=== PATIENT | female | born 1995 | race Caucasian/White ===

== ENCOUNTER 2025-03-29 15:33 | Emergency (ER) | payer OTHER, SELFPAY ==
--- NOTE | ~2025-03-29 | US_ITS ---
CLINICAL HISTORY: Left Inguinal Tenderness, LT PELVIC PAIN US pelvis transvaginal Comparison: None provided Findings: Transvaginal scanning performed. Anteverted uterus is 7 cm length. Normal myometrium. Endometrium 2 mm thickness. Right ovary 1.7 x 0.9 x 0.8 cm. Left ovary not visualized No free fluid. IMPRESSION: 1. Unremarkable pelvic ultrasound 2. Left ovary not visualized This document has been electronically signed by: Elpidio Stover MD, PHD on 03/29/2025 23:50:31
--- NOTE | ~2025-03-29 | US_ITS ---
CLINICAL HISTORY: Pain; Recent Travel Venous duplex ultrasound left lower extremity Comparison: None provided Findings: The visualized deep veins are fully compressible with normal Doppler color flow and spectral tracings. No popliteal cyst. IMPRESSION: 1. Negative for left lower extremity deep vein thrombosis. This document has been electronically signed by: Elpidio Stover MD, PHD on 03/29/2025 23:47:30
--- NOTE | ~2025-03-29 | CT_ITS ---
CLINICAL HISTORY: LLQ Tenderness; L Flank Pain CT abdomen and pelvis with contrast Comparison: CT - CT ABDOMEN PELVIS W IV CON - 03/29/25 23:59 EDT Findings: Small hiatal hernia. Unremarkable gallbladder and solid organs. No urolithiasis. No bowel obstruction, pneumoperitoneum, or pneumatosis. The appendix is surgically absent. The bones are intact. IMPRESSION: No acute findings. This document has been electronically signed by: Elpidio Stover MD, PHD on 03/30/2025 01:48:19
[2025-03-29 15:55] VITALS: BP 140/70; PULSE 75; RESP 20; TEMP 37; O2SAT 100; BMI 30.1
--- NOTE | 2025-03-29 15:55 | ED_ITS ---
HPI - General Adult General Chief complaint: Abdominal Pain Stated complaint: abd pain radiating to back and leg Time Seen by Provider: 03/29/25 20:03 Source: patient Mode of arrival: ambulatory Limitations: no limitations History of Present Illness ED Provider: Kevon CARTER HPI narrative: Patient is a 30-year-old female presenting to the ED reporting approximately 1 week ago while in [facility] she was experiencing GI symptoms with the abdominal cramping and borborygmi, as well as nonbloody diarrhea. Patient reports symptoms resolved and she returned home 2 days ago. Patient reports today she developed bilateral lower quadrant abdominal pain worse on the left with radiation into the bilateral flanks and left leg. The patient denies associated chest pain, shortness of breath, pleurisy, fever/chills, nausea, vomiting, diarrhea, dysuria, hematuria, recent sick contacts, or recent trauma. The patient does report she started her menses today as expected, denies history of painful menstruation. Patient reports history of 1 previous , and also an appendectomy 15 years ago. Denies other surgical abdominal history. Related Data Allergies Allergy/AdvReac Type Severity Reaction Status Date / Time acetaminophen (From Vicodin) AdvReac Gastrointestinal Verified 03/29/25 15:55 Upset hydrocodone (From Vicodin) AdvReac Gastrointestinal Verified 03/29/25 15:55 Upset Review of Systems 2 Review of Systems: Yes all other systems are reviewed and are negative PMFSH Social History Social History Smoked in Last 30 Days: No Use of substances other than those prescribed or required for medical reasons: No Advance Directives: No Advance Directives Information Provided: No Patient : No Physical Exam ED Vital Signs: Vital Signs - 24 hr 03/29/25 15:55 03/29/25 18:40 03/29/25 19:52 Temperature 98.6 F 98.6 F 98.4 F Pulse Rate 75 104 H 72 Respiratory Rate 20 20 16 Blood Pressure 140/70 H 158/78 H 124/81 Pulse Oximetry 100 100 100 Oxygen Delivery Method Room Air Room Air Room Air BMI result Body Mass Index 30.1 CONSTITUTIONAL: The patient appears non-toxic, well nourished and in no acute distress. Vital signs as documented. HEAD: Atraumatic, normocephalic. EYES: EOMs grossly intact, pupils equal, conjunctiva clear, no exudate. ENT: Nares patent, no discharge. Airway patent, no audible stridor, visible mucosa is pink and moist without noted lesions. NECK: Trachea is midline, no obvious masses or gross abnormalities. CHEST: Symmetric movement, normal appearance. LUNGS: LS present and CTAB, no w/r/r. Non-labored work of breathing. CARDIAC: Regular Rhythm, S1/S2 appreciated, no murmurs, rubs or gallops. ABDOMEN: Abdomen soft x4 quadrants, positive tenderness of the left lower quadrant, negative rebound, no palpable masses or organomegaly. : Deferred. EXTREMITIES: Normal tone, moves all extremities spontaneously without reported pain. No obvious acute injury or deformity noted. NEURO: Alert and oriented x3, CN II-XII appear grossly intact. Cerebellar Functioning grossly intact. No obvious sensory or motor deficits. Speech clear and appropriate. PSYCH: normal affect, appropriate eye contact, fluid speech, with appropriate response to questioning. No reported suicidality or homicidality. SKIN: Warm, dry, color appropriate, normal turgor. No rashes noted. Course Course Course Narrative: This is a rapid medical exam performed by Jammie Cuba NP: Additional HPI, ROS, PE not included below will be deferred to primary provider. Patient is a 30y/o F pmhx of appendectomy, presenting with complaint of LLQ abd pain radiating to back and left leg. 5 days ago had diarrhea. Then 2 days ago flew home from [facility], and pain began last night. Referred from urgent care. Plan: Labs, UA Medications Administered Discontinued Medications Generic Name Dose Route Start Last Admin Trade Name Lele PRN Reason Stop Dose Admin Acetaminophen 975 mg 03/29/25 23:25 03/29/25 23:38 Acetaminophen 325 Mg Tablet PO 03/29/25 23:26 975 mg ONCE ONE Administration Iohexol 85 ml 03/30/25 00:12 03/30/25 00:12 Iohexol 350 Mg/Ml 100 Ml Infus..Btl IV 03/30/25 00:13 85 ml ONCE ONE Administration Ketorolac Tromethamine 30 mg 03/29/25 18:41 03/29/25 18:44 Ketorolac Tromethamine 30 Mg/Ml Vial IM 03/29/25 18:42 30 mg ONCE ONE Administration Medical Decision Making Medical Decision Making MDM Narrative: 8:50 PM 03/29/2025 (Danilo CARTER): The patient is a 30-year-old female presenting to the ED for evaluation of bilateral lower quadrant abdominal pain radiating to the flanks and left leg which began today, after she experienced 3 days of abdominal upset with diarrhea while traveling in [facility]. On exam patient is well-appearing, nontoxic. Abdominal exam reveals left lower quadrant abdominal tenderness, negative rebound. Patient received Toradol during triage process, reports pain improved from 8 to 3. The patient's laboratory evaluation shows no leukocytosis, anemia, electrolyte abnormality, or POLLO. The patient's LFTs are unremarkable, beta hCG is negative. Urinalysis shows moderate leukocyte esterase but without bacteria or nitrites. Given lack of symptoms UTI is unlikely. Due to abdominal tenderness the patient will be sent for ultrasound of the pelvis, additionally we will obtain ultrasound of left lower extremity due to radiation of pain in the left leg with recent travel. If ultrasound evaluation is nondiagnostic we will consider CT imaging. 12:08 AM 03/30/2025 (Danilo CARTER): The patient's ultrasound shows no evidence of left lower extremity DVT. Pelvic ultrasound shows no acute abnormalities, however the left ovary is not visualized. Patient will be sent for CT of the abdomen and pelvis. 1:58 AM 03/30/2025 (Danilo CARTER): Patient's CT shows no acute findings. The exact cause of the patient's discomfort is not entirely clear, may be related to menstrual cramping. We will treat with a additional Toradol as it has been greater than 8 hours since previous treatment. At this time patient has been advised to follow up with PCP and OBGYN. Patient is comfortable with plan for discharge home and outpatient follow up. Patient has been provided strict return instructions and appears reliable. Admission/Observation Consideration of admission/observation: Escalation of care including admission/observation considered Lab Data MDM Lab Attestation statement: I reviewed the patient's lab results. 03/29/25 16:19 03/29/25 16:19 Labs: Lab Results 03/29/25 03/29/25 Range/Units 16:19 16:25 WBC 7.1 (4.8-10.8) X10*3/uL RBC 4.49 (4.20-5.50) X10*6/uL Hgb 12.9 (12.0-16.0) g/dl Hct 39.9 (37.0-47.0) % MCV 88.9 (80.0-98.0) fL MCH 28.7 (27.0-33.0) pg MCHC 32.3 (31.0-35.0) g/dl RDW 12.2 (11.0-16.0) % Plt Count 291 (160-400) X10*3/uL MPV 11.3 (9.4-12.3) fL Immature Gran % (Auto) 0.3 (0.0-0.4) % Neut % (Auto) 66.1 (45-73) % Lymph % (Auto) 25.5 (20-40) % Independence % (Auto) 5.3 (2-11) % Eos % (Auto) 2.0 (0-4) % Baso % (Auto) 0.8 (0-2) % Lymph # (Auto) 1.8 (1.2-4.9) X10*3/uL Independence # (Auto) 0.4 (0.1-1.2) X10*3/uL Eos # (Auto) 0.1 (0.0-0.4) X10*3/uL Baso # (Auto) 0.1 (0.0-0.2) X10*3/uL Abs Immat Gran (auto) 0.02 (0.00-0.03) X10*3/uL Absolute Neuts (auto) 4.7 (2.0-8.3) x10*3/uL Absolute Nucleated RBC 0.000 (0.0-0.012) X10*3/uL Nucleated RBC % (auto) 0.0 (0.0-0.2) /100WBC Sodium 140 (135-145) mmol/L Potassium 3.8 (3.3-5.1) mmol/L Chloride 109 H (96-108) mmol/L Carbon Dioxide 24 (22-29) mmol/L Anion Gap 11 L (12-20) BUN 11 (9-16) mg/dL Creatinine 0.81 (0.5-1.4) mg/dL Estim Creat Clear Calc 109.2 Estimated GFR > 60 Random Glucose 97 (60-115) mg/dL Calcium 9.0 (8.4-10.2) mg/dL Magnesium 2.0 (1.6-2.6) mg/dL Total Bilirubin 0.5 (0.0-1.0) mg/dL AST 23 (5-31) U/L ALT 20 (0-31) U/L Alkaline Phosphatase 64 (39-117) U/L Total Protein 7.2 (6.5-8.0) g/dL Albumin 4.3 (3.5-5.0) g/dL Beta HCG, Quant < 2 mIU/mL Urine Color Yellow Urine Appearance Clear Urine pH 7.5 (5.0-9.0) Ur Specific Seymour 1.015 (1.005-1.025) Urine Protein Negative (Neg-Trace) mg/dL Urine Glucose (UA) Negative (Negative) mg/dL Urine Ketones Negative (Negative) mg/dL Urine Blood Negative (Negative) Urine Nitrite Negative (Negative) Ur Leukocyte Esterase Moderate (2+) H (Negative) Urine RBC 3-5 H (0-2) /HPF Urine WBC 0-5 (0-5) /HPF Ur Squamous Epith Cells 0-2 (0-2) /HPF Urine Bacteria None Seen (None Seen) Hyaline Casts 0-2 (0-2) /LPF Radiology Impression Discussion of test interpretation with radiology: I have reviewed the radiologist's reading. Radiologist Impression: CLINICAL HISTORY: LLQ Tenderness; L Flank Pain CT abdomen and pelvis with contrast Comparison: CT - CT ABDOMEN PELVIS W IV CON - 03/29/25 23:59 EDT Findings: Small hiatal hernia. Unremarkable gallbladder and solid organs. No urolithiasis. No bowel obstruction, pneumoperitoneum, or pneumatosis. The appendix is surgically absent. The bones are intact. IMPRESSION: No acute findings. This document has been electronically signed by: Elpidio Stover MD, PHD on 03/30/2025 01:48:19 CLINICAL HISTORY: Pain; Recent Travel Venous duplex ultrasound left lower extremity Comparison: None provided Findings: The visualized deep veins are fully compressible with normal Doppler color flow and spectral tracings. No popliteal cyst. IMPRESSION: 1. Negative for left lower extremity deep vein thrombosis. This document has been electronically signed by: Elpidio Stover MD, PHD on 03/29/2025 23:47:30 CLINICAL HISTORY: Left Inguinal Tenderness, LT PELVIC PAIN US pelvis transvaginal Comparison: None provided Findings: Transvaginal scanning performed. Anteverted uterus is 7 cm length. Normal myometrium. Endometrium 2 mm thickness. Right ovary 1.7 x 0.9 x 0.8 cm. Left ovary not visualized No free fluid. IMPRESSION: 1. Unremarkable pelvic ultrasound 2. Left ovary not visualized This document has been electronically signed by: Elpidio Stover MD, PHD on 03/29/2025 23:50:31 Discharge Plan Discharge Clinical Impression: Flank pain Abdominal pain Qualifiers: Abdominal location: lower abdomen, unspecified Qualified Code(s): R10.30 - Lower abdominal pain, unspecified Patient Disposition: Home, Self-Care Instructions: Abdominal Pain (ED) Additional Instructions: Thank you for choosing [facility]'s Emergency Department for your care today. Thankfully your laboratory evaluation, ultrasounds, CT imaging, and exam today are reassuring At this time there is no indication for admission to the hospital or continued ED observation, and it is safe to discharge you home. The exact cause of your symptoms is not entirely clear, however your workup shows no evidence of a urinary tract infection, kidney stone, bowel obstruction, bacterial intra-abdominal infection, ovarian cyst, ovarian torsion, or other emergent cause for your symptoms. You may take alternating (staggered) doses of ibuprofen 600mg and Tylenol 1000mg every 4 hours as needed for any additional pain. Please stay well hydrated and get plenty of rest. Please follow up with your primary care physician for re-evaluation, additional management of your symptoms, and continued preventative care. If you do not have a primary care physician, please call the [facility] at [phone] to establish a new primary care physician. While waiting to establish your new primary care physician, you can call our Walk[facility]in [facility] at [phone] for non-emergency needs. Please return to the emergency department if you develop a severe or sudden change in your symptoms, a fever over 100.4 that does not improve with Tylenol or Ibuprofen, recurrent vomiting, or any other new or worsening symptoms or concerns. Referrals: Rosa Bennett DO [Primary Care Provider, Family Practice] Clinical Impression: Flank pain; Abdominal pain Print Language: Amharic
[2025-03-29 16:36] LABS: Hematocrit 39.9 % (37.0-47.0); Hemoglobin 12.9 g/dl (12.0-16.0); Imm Gran Abs Auto 0.02 X10*3/uL (0.00-0.03); Imm Gran Pct Auto 0.3 % (0.0-0.4); Lymphocytes Absolute Auto 1.8 X10*3/uL (1.2-4.9); MANUAL DIFF FLAG NO; Mean Corpuscular HGB Conc 32.3 g/dl (31.0-35.0); Mean Corpuscular Hemoglobin 28.7 pg (27.0-33.0); Mean Corpuscular Volume 88.9 fL (80.0-98.0); NRBC Abs Auto 0.000 X10*3/uL (0.0-0.012); NRBC Pct Auto 0.0 /100WBC (0.0-0.2); Platelet Count 291 X10*3/uL (160-400); Red Blood Count 4.49 X10*6/uL (4.20-5.50); White Blood Count 7.1 X10*3/uL (4.8-10.8)
[2025-03-29 16:41] LABS: Appearance Urine Clear; Glucose Urine UA Negative (Negative); PH 7.5 (5.0-9.0); Specific Gravity - Urine 1.015 (1.005-1.025); UMIC TRIGGER UACC YES
[2025-03-29 16:52] LABS: UACC Culture Trigger YES
[2025-03-29 16:59] LABS: Alanine Aminotransferase 20 U/L (0-31); Albumin Level 4.3 g/dL (3.5-5.0); Alkaline Phosphatase 64 U/L (39-117); Anion Gap 11 (12-20); Aspartate Amino Transferase 23 U/L (5-31); Blood Urea Nitrogen 11 mg/dL (9-16); Calcium 9.0 mg/dL (8.4-10.2); Carbon Dioxide 24 mmol/L (22-29); Chloride 109 mmol/L (96-108); Creatinine Clr Calc Pharmacy 109.2; Estimated Glomerular Filt Rate > 60; Magnesium 2.0 mg/dL (1.6-2.6); Potassium 3.8 mmol/L (3.3-5.1); Sodium 140 mmol/L (135-145); Total Protein 7.2 g/dL (6.5-8.0)
[2025-03-29 18:40] VITALS: BP 158/78; PULSE 104; RESP 20; TEMP 37; O2SAT 100
--- NOTE | 2025-03-29 18:45 | PC.NURSE ---
Pt tearful, IM toradol given in triage.
[2025-03-29 19:52] VITALS: BP 124/81; PULSE 72; RESP 16; TEMP 36.9; O2SAT 100
--- OUTSIDE RECORDS SUMMARY | 2025-03-29 19:57 | XMS_ITS | Clinical Summary ---
Author Organization [facility] Address [address] [place] [id number] Phone Care Team Providers Care Teacher Adult Education Name Role Phone Karley Leos MD Primary Care Provider [phone] Allergies Active Allergy Reactions Criticality Noted Date Comments Hydrocodone-Acetaminophen GI Upset High 03/09/2011 vomiting Medications levonorgestrel-eth inyl estradiol (LUTERA, 28,) 0.1-0.02 mg per tabletIndications: Encounter for initial prescription of contraceptive pills Take 1 tablet by mouth as directed. 1 tablet Orally Daily for Three Weeks, 1 Week off 84 tablet 1 2 Active Active Problems Problem Noted Date Diagnosed Date Encounter for supervision of normal first in first trimester 05/07/2022 Overview (05/07/2022): CNM OB-CMI score: 0 [05/07/2022] Group PN care? * Rh * GC/Chlam * PAP * Tdap * Flu at work COVID-19 vaccinated with 1 booster, counseled Hgb * GTT * 28 wk Repeat RPR * GBS * PPBC * screening planning NT Heart murmur 05/07/2022 Overview (05/07/2022): Diagnosed by a special officer automat 4-5 years ago. Pt planning to follow up with special officer automat now that she is . Assessment & Plan (05/07/2022 3:11 PM EDT): No current sx. Anxiety with limited-symptom attacks 08/12/2021 Assessment & Plan (08/12/2021 5:12 PM EST): The anxiety issue is not new but perhaps the novelty of moving from [place] to [place] coupled with a new job coupled with father passing away 3 years ago may lead to anxiety attacks when she is free moments within the day. Since we cannot expect her to be preoccupied all day, a trial of propranolol 10 mg 3 times a day as needed for anxiety. Patient told that this is the lowest dose and that we can titrated up to 20 or even 40 mg. If the propanolol does not succeed we can trial her on hydroxyzine 25 mg 3 times daily as needed. Patient will set up for a 3-month physical. She will call us and we can titrated over the phone. If it is working well we can even change to extended release Inderal. 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 tx EXC 08/13/23 Immunizations Immunization Administration Dates Next Due DTP 08/04/1994, 4,1993,04/16 DTaP 12/04/1997 HPV,quadrivalent 08/30/2007,04/25/2007, 7 Hep A,ped/adol,3 dose 09/11/2011, 011,07/22/1998,01/29,12/25/1997 Hepatitis B 07/22/1998,01/29/1998,12/25/1997 Hib,PRP-OMP 05/19/1994, 4,1993,04/16 Influenza Quadrivalent MDCK Preservative Free IM 03/28/2020,04/19/2019 Influenza Quadrivalent Prese rvative Free IM 04/20/2018 Influenza Quadrivalent Prese rvative Free Intradermal 03/29/2020 MMR 12/04/1997,05/19/1994 Meningococcal MCV4P 03/10/2011,02/21/2007 PPD Test 08/12/2021(Deferred: Patient Decision - She will call to have done at later date) Polio - OPV 12/04/1997, 5,1993,04/16 Td (adult) 5 Lf Tetanus Toxo id, PF, Adsorbed 05/06/2004 Tdap 05/08/2020,02/25/2009 Family History Medical History Relation Comments CV disease Maternal Grandfather 2 CV disease Maternal Grandmother 2 Cancer Paternal Aunt 2 CV disease Paternal Grandfather 2 Relation Status Comments Maternal Grandfather 1 Maternal Grandfather 2 Maternal Grandmother 1 Maternal Grandmother 2 Paternal Aunt 1 Paternal Aunt 2 Paternal Grandfather 1 Paternal Grandfather 2 Social History Tobacco Use Types Packs/Day Years Used Date Smoking Tobacco: Never Smokeless Tobacco: Never Alcohol Use Standard Drinks/Week Comments Not Currently 0 (1 standard drink = 0.6 oz pur e alcohol) Child or Family Care Answer Date Record ed Do you have problems with on e of the following making it difficult for you to work, study, or receive health care? No 08/12/2021 Education Answer Date Recorded Are you interested in more education? Not on tiffanie e 08/13/2023 Are you concerned about learning? Not on file 08/13/2023 No 08/13/2023 No 08/13/2023 Food Answer Date Recorded Within the past 6 months we worried whether our food would run out before we got money to buy more. Never True 08/12/2021 Within the past 6 months the food we bought just didn't last and we didn't have enough money to get more. Never True Residential Stability Answer Date Recor ded What is your housing situation today? I have dilcia sing 08/12/2021 How many times have you move d in the past 12 months? Zero (I did not move) 08/12/2021 Paying for Meds Answer Date Recorded Do you have trouble paying for medicines? No 08/12/2021 Paying Utility Bills Answer Date Record ed Do you have trouble paying your heating or elect ricity bill? No 08/12/2021 Transportation Answer Date Recorded Has the lack of transportati on kept you from medical appointments or from getting medications? No 08/12/2021 Unemployment Answer Date Recorded Are you currently unemployed or working on a part-time or temporary basis, and looking for work? No 08/12/2021 Digital Access Answer Date Recorded No 12/21/2022 No 12/21/2022 Reliable internet access at home? Not on file 12/21/2022 Device with a working camera? Not on file Comments No Sex and Gender Information Value Date Recorded Sex Assigned at Not on file Legal Sex Female 8:57 PM EDT Gender Identity Not on file Sexual Orientation Not on file Last Filed Vital Signs Vital Sign Reading Time Taken Comments Blood Pressure 116/70 05/07/2022 2:34 PM EDT Pulse 97 08/12/2021 4:07 PM EST Temperature - - Respiratory Rate 16 08/12/2021 4:07 PM EST Oxygen Saturation 99% 08/12/2021 4:07 PM EST Inhaled Oxygen Concentration - - Weight 81.2 kg (179 lb) 05/07/2022 2:34 PM EDT Height 172.1 cm (5' 7.75 ) 08/12/2021 4:07 PM ES T Body Mass Index 27.42 08/12/2021 4:07 PM EST Plan of Treatment Health Maintenance Due Date Last Done Comments HEPATITIS C SCREENING 2011 HIV ONE-TIME SCREENING (18-65 YEARS) 2011 DEPRESSION SCREENING 08/12/2022 08/12/2021 PAP SMEAR 05/08/2023 05/08/2020 INFLUENZA VACCINE (#1) 2025 , 03/28/2020, 04/19/2019, Additional history exists COVID-19 VACCINE (2024- season) 2025 06/12/2021, 09/17/2020, 08/20/2020 Adult Td,Tdap Booster 05/08/2030 05/08/2020 , 02/25/2009, 05/06/2004 HIB VACCINES Completed 05/19/1994, 07/1993, 1993, Additional history exists MENINGOCOCCAL VACCINES (ACWY) Completed 03/10/2011, 02/21/2007 HEPATITIS A VACCINES Completed 09/11/2011, 03/10/2011, 07/22/1998, Additional history exists SMOKING STATUS SCREENING (Once After 26 Yrs) Completed 05/07/2022 MENINGOCOCCAL VACCINES (B) Aged Out N o longer eligible based on patient's age to complete this topic PNEUMOCOCCAL VACCINES (0-49 years) Aged Out No longer eligible based on patient's age to complete this topic Medical Devices Not on file Procedures Procedure Name Priority Date/Time Associated Diagnosis Comments PAP SMEAR FOR RESULT ENTRY ONLY Routine 05/08/2020 from Last 3 Months or Most Recently Relevant to Health Maintenance Results * PAP SMEAR FOR RESULT ENTRY ONLY (05/08/2020) Pap smear NILM Historical Provider HEALTH MAINTENANCE Final Result from Last 3 Months or Most Recently Relevant to Health Maintenance Insurance [facility] PPO EPO [facility] PPO EPO [facility]PO EPO [facility] [place] [address] [place] [address] [place] [address] [place] [address] [place] [address] [place] [address] [facility] PPO EPO Care Teams Teacher Adult Education Relationship Specialty Start Date End Date Karley Leos MD PCP - General Internal Medicine 06/21/23 Additional Source Comments The information contained in this document represents components of the legal health record. It is not the complete legal health record.[facility]
[2025-03-30] MEDS: iohexoL 350 MG/ML 100 ML INFUS..BTL 85 ML IV (00:12)
[2025-03-30 02:09] VITALS: BP 130/67; PULSE 66; RESP 19; TEMP 36.8; O2SAT 97
== END 2025-03-30 02:10 | disposition home or self-care (01) ==
PROVIDERS: Registered Nurse Emergency; Emergency Provider Emergency Medicine; PCP Family Medicine
DX: R10.2 Pelvic and perineal pain (principal); R25.2 Cramp and spasm; K44.9 Diaphragmatic hernia without obstruction or gangrene; R60.0 Localized edema; R10.30 Lower abdominal pain, unspecified; M79.605 Pain in left leg; R19.7 Diarrhea, unspecified; Z79.899 Other long term (current) drug therapy
CPT/HCPCS: 36415; 74177; 76830; 76856; 80053; 81001; 83735; 84702; 85025; 87086; 87147; 93971; 96372; 96374; 99284; 99285; J1885; Q9967

== ENCOUNTER → 2025-03-29 20:46 | Outpatient (BNV) | payer OTHER, SELFPAY | PROVIDERS: Emergency Provider Emergency Medicine; PCP Family Medicine; Visit Provider General Practice | DX: R10.2 Pelvic and perineal pain (principal); M79.605 Pain in left leg | CPT/HCPCS: 76830; 76856; 93971 ==

== ENCOUNTER → 2025-03-30 | Outpatient (BNV) | payer OTHER, SELFPAY | PROVIDERS: Emergency Provider Emergency Medicine; PCP Family Medicine; Visit Provider General Practice | DX: K44.9 Diaphragmatic hernia without obstruction or gangrene (principal) | CPT/HCPCS: 74177 ==